=== PATIENT | male | born 1995 | race Asian ===

== ENCOUNTER 2023-04-30 13:01 | Emergency (ER) | payer OTHER, SELFPAY ==
[2023-04-30 13:17] VITALS: BP 113/78; PULSE 73; RESP 14; TEMP 36.8; O2SAT 99; BMI 24.3
--- NOTE | 2023-04-30 13:57 | ED_ITS ---
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 91 (80-100) fL MCH 32 (26-34) pg MCHC 35 (32-36) gm/dL RDW Coeff of Justo 11.3 L (11.5-15.5) % Plt Count 256 (140-440) K/uL Neut % (Auto) 58.0 (42.0-72.0) % Lymph % (Auto) 33.8 (20-44) % [place] % (Auto) 7.1 (0.0-11.0) % Eos % (Auto) 0.4 (0.0-7.0) % Baso % (Auto) 0.7 (0.0-3.0) % Neut # (Auto) 2.62 (1.7-7.0) K/uL Lymph # (Auto) 1.53 (0.90-2.90) K/uL [place] # (Auto) 0.30 (0.00-0.90) K/UL Eos # (Auto) 0.02 (0.00-0.50) K/uL Baso # (Auto) 0.03 (0.00-0.30) K/uL Abs Immat Gran (auto) 0.00 (0.00-0.30) K/uL Imm/Tot Granulo (auto) 0.0 % Sodium 138 (135-149) mmol/L Potassium 4.1 (3.6-5.1) mmol/L Chloride 100 (96-114) mmol/L Carbon Dioxide 27 (20-32) mmol/L Anion Gap 11 (7-15) mEq/L BUN 13 (5-24) mg/dL Creatinine 0.8 (0.5-1.5) mg/dL Estimated Creat Clear 139.93 Estimated GFR 125 ml/min Glucose 100 (60-115) mg/dL Calcium 9.7 (8.4-10.6) mg/dL Magnesium 2.3 (1.5-2.6) mg/dL Total Bilirubin 1.1 (0.1-1.5) mg/dL AST 18 (12-35) U/L ALT 11 (4-50) U/L Alkaline Phosphatase 46 (40-150) U/L C-Reactive Protein < 0.5 L (0.5-1.0) mg/dL Total Protein 8.0 (6.0-8.3) g/dL Albumin 5.0 (3.3-5.0) g/dL 25-OH Vitamin D Total 29 L (30-80) ng/mL TSH 0.431 (0.270-4.200) uIU/mL Urine Opiates Screen Negative (Negative) Ur Oxycodone Screen Negative (Negative) Urine Methadone Screen Negative (Negative) Ur Barbiturates Screen Negative (Negative) U Tricyclic Antidepress Negative (Negative) Ur Phencyclidine Scrn Negative (Negative) Ur Amphetamines Screen Negative (Negative) U Methamphetamines Scrn Negative (Negative) U Benzodiazepines Scrn Negative (Negative) Urine Cocaine Screen Negative (Negative) U Marijuana (THC) Screen Negative (Negative) Ur Drug Screen Comment See Note <Wiley Mas MD - Last Filed: 05/01/23 12:50> Discharge Plan Discharge Clinical Impression: Delusions, Sleep deprivation <Estela Saxena MD - Last Filed: 04/30/23 21:24> Patient Disposition: Home, Self-Care <Estela Saxena MD - Last Filed: 04/30/23 21:24> Condition: Stable <Estela Saxena MD - Last Filed: 04/30/23 21:24> Instructions: Psychotic Disorder (ED) <Estela Saxena MD - Last Filed: 04/30/23 21:24> Additional Instructions: Follow-up with psychiatry <Estela Saxena MD - Last Filed: 04/30/23 21:24> Activity Level: No Restrictions <Estela Saxena MD - Last Filed: 04/30/23 21:24> No Restrictions <Luz Maria Aceves MD - Last Filed: 04/30/23 13:59> No Restrictions <Cooper Gibbs MD - Last Filed: 05/01/23 07:58> No Restrictions <Wiley Mas MD - Last Filed: 05/01/23 12:50> Discharge Diet: Regular <Estela Saxena MD - Last Filed: 04/30/23 21:24> Regular <Luz Maria Aceves MD - Last Filed: 04/30/23 13:59> Regular <oCoper Gibbs MD - Last Filed: 05/01/23 07:58> Regular <Wiley Mas MD - Last Filed: 05/01/23 12:50> Prescriptions: No Action magnesium PO <Estela Saxena MD - Last Filed: 04/30/23 21:24> Follow Up/Referrals: Provider,Not a Local [Primary Care Provider] - <Estela Saxena MD - Last Filed: 04/30/23 21:24> Stand Alone Forms: [facility] Info Instructions <Estela Saxena MD - Last Filed: 04/30/23 21:24>
[2023-04-30 14:43] LABS: Basophils Absolute Auto 0.03 K/uL (0.00-0.30); Basophils Percent Auto 0.7 % (0.0-3.0); Eosinophils Absolute Auto 0.02 K/uL (0.00-0.50); Eosinophils Percent Auto 0.4 % (0.0-7.0); Hemoglobin* 16.1 gm/dL (13.5-17.5); Lymphocytes Absolute Auto 1.53 K/uL (0.90-2.90); Lymphocytes Percent Auto 33.8 % (20-44); Mean Corpuscular HGB Conc 35 gm/dL (32-36); Mean Corpuscular Hemoglobin 32 pg (26-34); Mean Corpuscular Volume 91 fL (80-100); Monocytes Percent Auto 7.1 % (0.0-11.0); Neutrophils Absolute Auto 2.62 K/uL (1.7-7.0); Platelet Count* 256 K/uL (140-440); RDW Coefficient of Variation % 11.3 % (11.5-15.5); Red Blood Count 5.04 m/uL (4.30-5.90); White Blood Count* 4.52 K/uL (4.50-11.00)
[2023-04-30 14:55] LABS: Amphetamine Screen Urine Negative (Negative); Barbiturate Screen Urine Negative (Negative); Benzodiazepines Screen Urine Negative (Negative); Cannabinoid Screen Urine Negative (Negative); Cocaine Screen Urine Negative (Negative); Methadone Screen Urine Negative (Negative); Methamphetamines Screen Urine Negative (Negative); Opiate Screen Urine Negative (Negative); Oxycodone Screen Urine Negative (Negative); Phencyclidine Screen Urine Negative (Negative); Slide Review Reflex No; Tricyclic Antidepressant Urine Negative (Negative)
[2023-04-30 14:58] LABS: Chloride* 100 mmol/L (96-114); Sodium* 138 mmol/L (135-149)
[2023-04-30 14:59] LABS: Potassium* 4.1 mmol/L (3.6-5.1)
[2023-04-30 15:00] LABS: Creatinine* 0.8 mg/dL (0.5-1.5); Est. Creatinine Clearance* 139.93; Estimated Glomerular Filt Rate 125 ml/min
[2023-04-30 15:01] LABS: Alanine Aminotransferase* 11 U/L (4-50); Alkaline Phosphatase* 46 U/L (40-150); Anion Gap 11 mEq/L (7-15); Aspartate Amino Transferase* 18 U/L (12-35); Bilirubin Total* 1.1 mg/dL (0.1-1.5); Blood Urea Nitrogen* 13 mg/dL (5-24); Carbon Dioxide* 27 mmol/L (20-32); Glucose* 100 mg/dL (60-115)
[2023-04-30 15:02] LABS: Calcium* 9.7 mg/dL (8.4-10.6); Magnesium* 2.3 mg/dL (1.5-2.6)
[2023-04-30 15:06] LABS: C Reactive Protein* < 0.5 mg/dL (0.5-1.0)
[2023-04-30 15:34] LABS: Vitamin D 25 Hydroxy* 29 ng/mL (30-80)
[2023-04-30 15:48] LABS: TSH With Reflex to FT4* 0.431 uIU/mL (0.270-4.200)
[2023-04-30] MEDS: hydrOXYzine pamoate 25 MG CAPSULE 50 MG PO (18:54)
[2023-05-01 03:23] VITALS: RESP 18
[2023-05-01 08:21] VITALS: BP 102/62; PULSE 58; RESP 18; TEMP 36.4; O2SAT 99
--- NOTE | 2023-05-01 08:28 | ED.NURSE ---
pt made statements about needing to get back to school, reassured him that the MD will need to see him and that we do not have a plan in place for him yet. Pt was receptive of this and stated he will wait.
--- NOTE | 2023-05-01 08:44 | ED.NURSE ---
Ordered pt breakfast tray. Pt currently resting in room, visualized on 1:1 camera.
--- NOTE | 2023-05-01 11:23 | ED.NURSE ---
Pt resting in room and watching TV, is calm and cooperative at this time.
--- NOTE | 2023-05-01 11:44 | ED.NURSE ---
ROSALINE currently assessing pt.
--- NOTE | 2023-05-01 13:01 | ED.NURSE ---
Pt ordered and eating lunch tray. Head of security notified at [employer] of pt discharging
--- NOTE | 2023-05-01 13:28 | ED.NURSE ---
Went over safety plan from FEB with pt, pt verbalized being agreeable with safety plan.
== END 2023-05-01 14:20 | disposition home or self-care (01) ==
PROVIDERS: Family Medicine; Emergency Provider Emergency Medicine
DX: F22 Delusional disorders (principal); Z72.820 Sleep deprivation
CPT/HCPCS: 36415; 80053; 80306; 82306; 83735; 84443; 85025; 86140; 99283; 99284; 99285; A9270